=== PATIENT | female | born 1965 | race African-American/Black ===

== ENCOUNTER 2022-09-21 15:57 | Outpatient (CLI) | payer BC, SELFPAY | END 2022-09-21 15:58 | disposition home or self-care (01) | LOC: INJ CL 15:58 | PROVIDERS: PCP Family Medicine; Visit Provider Family Medicine | DX: M17.11 Unilateral primary osteoarthritis, right knee (principal); M25.561 Pain in right knee | CPT/HCPCS: 64454 ==

== ENCOUNTER 2022-10-19 13:12 | Outpatient (CLI) | payer MEDICARE, MEDICAID, SELFPAY | END 2022-10-19 13:13 | disposition home or self-care (01) | LOC: INJ CL 13:16 | PROVIDERS: Visit Provider Family Medicine | DX: M17.11 Unilateral primary osteoarthritis, right knee (principal); M25.561 Pain in right knee; G89.29 Other chronic pain | CPT/HCPCS: 64624; J2250; J3010 ==